=== PATIENT | male | born 1965 | race Caucasian/White ===

== ENCOUNTER → 2021-09-28 09:08 | Outpatient (CLI) | payer OTHER, SELFPAY ==
--- NOTE | ~2021-09-28 | XR_ITS ---
EXAMINATION: XR ankle LT min 3V EXAM DATE: 09/28/2021 09:33 INDICATION: Chronic pain of left ankle TECHNIQUE: Left ankle frontal, lateral and oblique projections obtained and reviewed. There is no pr ior study for comparison. FINDINGS: The left ankle mortise appears intact. There is mild to moderate left ankle osteoarthrit is. There is probable ankle joint effusion and some generalized fat stranding surrounding the ankle j oint which is nonspecific. Fat stranding surrounding the ankle within the subcutaneous tissues as wel l. There are no acute fractures identified. No radiopaque foreign bodies identified. IMPRESSION: 1. Probable left ankle joint effusion, nonspecific deep and superficial fat stranding probably infla mmation. 2. Mild to moderate osteoarthritis. Reviewed, dictated and finalized at location B. 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 Probable left ankle joint effusion, nonspecific deep and superficial fat st randing probably inflammation. 2. Mild to moderate osteoarthritis.
--- NOTE | ~2021-09-28 | XR_ITS ---
EXAMINATION: XR lumbar spine 2-3V EXAM DATE: 09/28/2021 09:33 INDICATION: Chronic bilateral low back pain with bilateral sciatica. Bilat posterior pelvis and lat > hip pain, bilat leg numbness. TECHNIQUE: Lumber spine frontal, lateral, lateral L5-S1 projections for interpretation. There is no prior study for comparison. FINDINGS: There are no acute fractures identified. Moderate lower lumbar facet arthropathy. Mild dif fuse lumbar disc disease. Mild abdominal aortic arteriosclerosis.. The vertebral bodies are aligned i n the AP dimension. Sacrum, sacroiliac joints, sacral arcuate lines are intact. Paraspinal soft tiss ue is unremarkable. IMPRESSION: Mild lumbar disc disease, moderate lower lumbar arthropathy. Reviewed, dictated and finalized at location B. NCIAL AUDITOR
== END ==
PROVIDERS: PCP Physician Assistant; Visit Provider Physician Assistant
DX: M25.572 Pain in left ankle and joints of left foot (principal); G89.29 Other chronic pain; M54.42 Lumbago with sciatica, left side; M54.41 Lumbago with sciatica, right side; M79.89 Other specified soft tissue disorders; M19.072 Primary osteoarthritis, left ankle and foot; M25.472 Effusion, left ankle; M51.9 Unspecified thoracic, thoracolumbar and lumbosacral intervertebral disc disorder; M12.88 Other specific arthropathies, not elsewhere classified, other specified site
CPT/HCPCS: 72100; 73610

== ENCOUNTER → 2022-01-05 16:13 | Outpatient (CLI) | payer OTHER, SELFPAY ==
--- NOTE | ~2022-01-05 | XR_ITS ---
XR shoulder LT min 2V DATE: 01/05/2022 17:15 INDICATION: Left shoulder pain TECHNIQUE: 4 views COMPARISON: None FINDINGS: No fracture or dislocation, periosteal reaction or bone destruction or abnormal soft tissue calcification. There is mild upper thoracic levoscoliosis. IMPRESSION: Negative left shoulder Reviewed, dictated and finalized at location A. IMPRESSION: Negative left shoulder
--- NOTE | ~2022-01-05 | XR_ITS ---
EXAM: XR_CERV2-3V_CR DATE: 01/05/2022 17:15 HISTORY: Chronic bilateral low back pain with bilateral sciatica . COMPARISON: None available. FINDINGS: Craniocervical association and atlantoaxial joint are normal. No prevertebral soft tissue swelling. Vertebral bodies are aligned. Vertebral body heights and disc spaces are maintained. Multil evel facet sclerosis and narrowing. IMPRESSION: Multilevel cervical facet arthropathy. Reviewed, dictated and finalized at location K.
--- NOTE | ~2022-01-05 | MR_ITS ---
EXAMINATION: MR lumbar spine wo con DATE: 01/05/2022 16:57 INDICATION: Lower extremity numbness . TECHNIQUE: Magnetic resonance imaging (MRI) of the lumbar spine was performed without intravenous con trast. Sequences included sagittal T2-weighted FSE, sagittal T2-weighted FS FSE, sagittal T1-weighted FSE, and axial T2-weighted FSE. COMPARISON: X-ray lumbar spine 09/20/2021. FINDINGS: The last fully formed and hydrated disc is designated L5-S1. The marrow signal is benign an d homogenous. Conus terminates at L1-2. Multilevel disc dehydration. The following disc levels are sp ecifically discussed: T11-T12: The disc does not extend beyond the endplate margin. There is no facet joint osteoarthritis. There is no neural foraminal stenosis. There is no central canal stenosis. T12-L1: Mild diffuse bulge. There is mild facet joint osteoarthritis. There is no neural foraminal st enosis. There is no central canal stenosis. L1-L2: Mild diffuse bulge. There is mild facet joint osteoarthritis. There is no neural foraminal yaakov nosis. There is no central canal stenosis. L2-L3: Moderate diffuse bulge. There is moderate facet joint osteoarthritis. There is no neural sarah inal stenosis. There is no central canal stenosis. L3-L4: Moderate diffuse bulge. There is moderate facet joint osteoarthritis. There is mild bilateral neural foraminal stenosis. There is mild central canal stenosis. L4-L5: Moderate diffuse bulge with a right lateral component. There is moderate facet joint osteoarth ritis. A synovial cyst projects off the left facet, directed anteriorly, with surrounding granulation tissue that indents and displaces the adjacent thecal sac and traversing left-sided nerve roots. The re is mild right neural foraminal stenosis. There is mild central canal stenosis. L5-S1: Mild diffuse bulge with superimposed 3 mm central protrusion and a small focal rent in the pos terior disc. There is moderate facet joint osteoarthritis. There is no neural foraminal stenosis. The re is no central canal stenosis. IMPRESSION: 1. Anteriorly directed left L4-5 facet synovial cyst with surrounding granulation tissue that indents and displaces the adjacent thecal sac and nerve roots. 2. 3 mm central L5-S1 disc protrusion with a focal posterior disc rent. 3. Multilevel moderate degenerative disc disease. 4. Multilevel moderate facet arthropathy. 5. Multilevel mild central canal stenosis. Reviewed, dictated and finalized at location K. IMPRESSION: 1. Anteriorly directed left L4-5 facet synovial cyst with surrounding granulati on tissue that indents and displaces the adjacent thecal sac and nerve roots. 2. 3 mm central L5-S1 disc protrusion with a focal posterior disc rent. 3. Multilevel moderate degenerative disc disease. 4. Multilevel moderate facet arthropathy. 5. Multilevel mild central canal stenosis.
== END ==
PROVIDERS: PCP Physician Assistant; Visit Provider Physician Assistant
DX: M54.42 Lumbago with sciatica, left side (principal); M54.41 Lumbago with sciatica, right side; G89.29 Other chronic pain; M54.2 Cervicalgia; M65.88 Other synovitis and tenosynovitis, other site; M51.27 Other intervertebral disc displacement, lumbosacral region; M51.36 Other intervertebral disc degeneration, lumbar region; M48.061 Spinal stenosis, lumbar region without neurogenic claudication; M12.88 Other specific arthropathies, not elsewhere classified, other specified site
CPT/HCPCS: 72040; 72148; 73030

== ENCOUNTER → 2022-01-08 10:33 | Outpatient (CLI) | payer OTHER, SELFPAY ==
--- NOTE | ~2022-01-08 | XR_ITS ---
XR hip BI 2V w AP pelvis DATE: 01/08/2022 11:14 INDICATION: Bilateral hip pain TECHNIQUE: AP pelvis. AP and lateral views of each hip. COMPARISON: None FINDINGS: Minimal bilateral degenerative spurring at the hip joints consistent with mild bilateral hi p osteoarthritis. No fracture or dislocation, avascular necrosis or bone destruction of either hip. The pubic symphysis and sacral iliac joints appear intact. No pelvic fracture or bone destruction. IMPRESSION: Mild bilateral hip osteoarthritis Reviewed, dictated and finalized at location A.
== END ==
PROVIDERS: PCP Physician Assistant
DX: M25.551 Pain in right hip (principal); M25.552 Pain in left hip; M16.0 Bilateral primary osteoarthritis of hip
CPT/HCPCS: 73521

== ENCOUNTER → 2022-08-20 16:21 | Outpatient (CLI) | payer OTHER, SELFPAY ==
--- NOTE | ~2022-08-20 | XR_ITS ---
EXAMINATION: XR ankle LT min 3V DATE: 08/20/2022 16:38 INDICATION: Chronic left ankle pain. TECHNIQUE: 4 views of left ankle were obtained. COMPARISON: Left ankle radiographs 09/28/2021 FINDINGS: Bone alignment is normal. No fracture. There is mild midfoot osteoarthritis. There is sever e ankle joint osteoarthritis. There is ankle soft tissue swelling. IMPRESSION: 1. Polyarticular osteoarthritis, severe at the ankle joint. Reviewed, dictated and finalized at location A. ENT PORTAL CONCIERGE
== END ==
PROVIDERS: PCP Physician Assistant; Visit Provider Orthopaedic Surgery
DX: M25.572 Pain in left ankle and joints of left foot (principal); G89.29 Other chronic pain; M19.072 Primary osteoarthritis, left ankle and foot
CPT/HCPCS: 73610

== ENCOUNTER → 2022-08-26 09:18 | Outpatient (CLI) | payer OTHER, SELFPAY ==
--- NOTE | ~2022-08-26 | XR_ITS ---
Right Knee Technique: AP, lateral, notch, and sunrise views were obtained. Clinical History: Pain Findings: No fracture or dislocation is seen. Osseous alignment is anatomic. There is minimal spurrin g at the intercondylar notch and patella. Soft tissues are unremarkable. No joint effusion is seen. Impression: Minimal degenerative spurring, as above. Reviewed, dictated and finalized at location . E FINISHER Impression: Minimal degenerative spurring, as above.
--- NOTE | ~2022-08-26 | XR_ITS ---
Left Knee Technique: AP, lateral, notch, and sunrise views were obtained. Clinical History: Pain Findings: No fracture or dislocation is seen. Osseous alignment is anatomic. Joint spaces are preserv ed without degenerative or erosive change. Soft tissues are unremarkable. No joint effusion is seen. Impression: Unremarkable left knee radiographs. Reviewed, dictated and finalized at location . ION SUPERVISOR Impression: Unremarkable left knee radiographs.
== END ==
PROVIDERS: PCP Physician Assistant; Visit Provider Orthopaedic Surgery
DX: M25.561 Pain in right knee (principal); M25.562 Pain in left knee; G89.29 Other chronic pain
CPT/HCPCS: 73564

== ENCOUNTER → 2022-11-01 08:32 | Outpatient (CLI) | payer OTHER, SELFPAY ==
--- NOTE | ~2022-11-01 | MR_ITS ---
EXAMINATION: MR brain/brain stem wo/w con DATE: 11/01/2022 09:15 INDICATION: Primary Parkinson's disease. Forgetfulness. TECHNIQUE: Magnetic resonance imaging (MRI) of the brain and brainstem was performed without and with 20 mL MultiHance intravenous contrast. COMPARISON: None. FINDINGS: There are 2 foci of increased T2 weighted signal intensity in the cerebral white matter, wh ich is normal for the patient's age. There is no intracranial hemorrhage, acute infarction, or abnorm al intracranial mass lesion. The ventricles are normal in size. There is mild mucosal thickening in t he paranasal sinuses. The orbits are normal. The mastoid air cells are normal. IMPRESSION: 1. Normal brain. Reviewed, dictated and finalized at location D. IMPRESSION: 1. Normal brain.
== END ==
PROVIDERS: PCP Physician Assistant; Visit Provider Psychiatry & Neurology Neurology
DX: M54.12 Radiculopathy, cervical region (principal); G20 Parkinson's disease
CPT/HCPCS: 70553; A9577

== ENCOUNTER → 2022-11-15 10:43 | Outpatient (CLI) | payer OTHER, SELFPAY ==
--- NOTE | ~2022-11-15 | MR_ITS ---
MRI of the cervical spine Clinical History: Radiculopathy Technique: Axial T2-weighted and gradient images, and sagittal T1-weighted, T2-weighted, and STIR jameson ges were acquired. Following intravenous administration of 15 cc MultiHance gadolinium, T1-weighted f at-sat imaging was performed in the axial and sagittal planes. Findings: There is no fracture or cervical spine. Minimal grade 1 anterolisthesis of C4 over C5 prese nt. No suspicious bone marrow signal abnormality seen. At C2-C3, there is no disc bulge or herniation. There is mild facet arthropathy, right worse than lef t. No spinal canal stenosis, cord compression, or neural foraminal narrowing. At C3-C4, there is minimal disc bulge. No spinal canal stenosis, cord compression, or neural foramina l narrowing. At C4-C5, there is minimal disc bulge. There is left-sided facet arthropathy and left-sided neural fo raminal narrowing. Right neural foramen preserved. No canal stenosis or cord compression. At C5-C6, there is no disc bulge or herniation. No spinal canal stenosis, cord compression, or neural foraminal narrowing. At C6-C7, there is no disc bulge or herniation. No spinal canal stenosis, cord compression, or neural foraminal narrowing. No abnormal signal seen in the spinal cord. No epidural mass or collection seen. Paravertebral soft t issues are unremarkable. No abnormal postcontrast enhancement identified. Impression: Mild degenerative change at C4-C5 with associated left-sided neural foraminal narrowing at this level . Minimal grade 1 anterolisthesis of C4 over C5. Reviewed, dictated and finalized at [facility]. Impression: Mild degenerative change at C4-C5 with associated left-sided neural foraminal n arrowing at this level. Minimal grade 1 anterolisthesis of C4 over C5.
== END ==
PROVIDERS: PCP Psychiatry & Neurology Neurology; Visit Provider Psychiatry & Neurology Neurology
DX: M54.12 Radiculopathy, cervical region (principal); M48.02 Spinal stenosis, cervical region; M43.12 Spondylolisthesis, cervical region
CPT/HCPCS: 72156; A9577

== ENCOUNTER → 2023-03-18 07:56 | Outpatient (CLI) | payer OTHER, SELFPAY ==
--- NOTE | ~2023-03-18 | MR_ITS ---
EXAMINATION: MR knee RT wo con DATE: 03/18/2023 08:26 INDICATION: Primary osteoarthritis of the right knee TECHNIQUE: Magnetic resonance imaging (MRI) of the right knee was performed without intravenous contr ast. Sequences included coronal PD-weighted FSE, coronal PD-weighted FS FSE, sagittal T2-weighted FS E, sagittal PD-weighted FS FSE and axial PD weighted fat saturated FSE. COMPARISON: Right knee radiographs dated 08/26/2022 FINDINGS: Medial compartment: Complex tear of the medial meniscus with longitudinal horizontal tears into the intra-articular surfa ce in the posterior horn and superior articular surface at the anterior body. There is minimal residu al meniscal tissue in the region of the posterior body consistent with secondary degeneration involvi ng displacement of the meniscal tissue. Extensive full/near full-thickness chondral ulceration with s light endometrial along the medial half of the medial tibial plateau and along the anterior to centra l weightbearing medial femoral condyle with underlying subcortical low signal intensity urination and increased T2 edema-like marrow signal change. Lateral compartment: Linear increased signal extending to the superior articular surface of the anterior horn of the later al meniscus suspicious for longitudinal tear although this is a site of decreased specificity for MRI interpretation of meniscal tear. Chondral ulceration and deep chondral fissuring with underlying cor tical irregularity at the posterior weightbearing lateral femoral condyle and deep chondral fissuring without degenerative subchondral changes at the central weightbearing lateral femoral condyle. Less severe partial thickness chondral fissure at the posterior medial aspect of the lateral tibial platea u. Patellofemoral compartment: Deep chondral ulceration with underlying cortical irregularity and underlying cystlike and edema-like signal change at the inferior half of the apical ridge and inferomedial aspect of the lateral trochl ea. Shallow chondral fissuring at the patellar apical ridge and deeper fissuring involving greater th an 50% of the cartilage thickness along the medial side of the medial patellar facet. Ligaments and tendons: Anterior and posterior cruciate ligaments are normal. The medial collateral ligament and fibular hiral ateral ligament complex are normal. Mild distal quadriceps tendinopathy. Patellar tendon is normal. T he visualized medial and lateral hamstring tendons as well as the iliotibial band are normal. Fluid: Small right knee joint effusion. No loose osteochondral bodies identified. Moderate size Phillips's cyst . Osseous/other: Bone alignment is normal. No fracture or pathologic marrow replacing process. IMPRESSION: 1. Complex medial meniscal tear and severe osteoarthritis of extensive high-grade chondromalacia in t he medial compartment. 2. Apparent small longitudinal horizontal tear at the anterior horn of the lateral meniscus although this is a site more susceptible to false positives and interpretation meniscal tear. 3. Mild osteoarthritis with regions of moderate and high-grade chondromalacia in the lateral and cruz llofemoral compartments. 4. Small right knee joint effusion and moderate-sized Phillips's cyst. Reviewed, dictated and finalized at location A. IMPRESSION: 1. Complex medial meniscal tear and severe osteoarthritis of extensive high-gra de chondromalacia in the medial compartment. 2. Apparent small longitudinal horizontal tear at the anterior horn of the late ral meniscus although this is a site more susceptible to false positives and in terpretation meniscal tear. 3. Mild osteoarthritis with regions of moderate and high-grade chondromalacia i n the lateral and patellofemoral compartments. 4. Small right knee joint ef
== END ==
PROVIDERS: PCP Physician Assistant
DX: M17.11 Unilateral primary osteoarthritis, right knee (principal); S83.231A Complex tear of medial meniscus, current injury, right knee, initial encounter; X58.XXXA Exposure to other specified factors, initial encounter; M25.461 Effusion, right knee
CPT/HCPCS: 73721

== ENCOUNTER → 2023-04-25 09:02 | Outpatient (CLI) | payer OTHER, SELFPAY ==
--- NOTE | ~2023-04-25 | XR_ITS ---
EXAMINATION: XR foot LT min 3V, XR foot RT min 3V DATE: 04/25/2023 09:55 INDICATION: Bilateral foot pain TECHNIQUE: 1. Weight bearing dorsoplantar, two oblique and lateral views of the left foot were obtained. 2. Weight bearing dorsoplantar, two oblique and lateral views of the right foot were obtained. COMPARISON: None. FINDINGS: Bilateral pes planus and mild hindfoot valgus. No fractures. Polyarticular osteoarthritis, severe at the right ankle joint and mild on the left as well as mild at many of the remaining joints throughout the bilateral feet. Moderate sized right-sided plantar calcaneal spur and small left-sided Achilles and plantar calcaneal spurs. Additional linear heterotopic ossification overlying the posterolateral metaphysis of the distal right tibia. IMPRESSION: 1. Bilateral pes planus with mild hindfoot valgus. 2. Polyarticular osteoarthritis, severe at the left ankle joint and mild at the right ankle and many of the joints in the bilateral feet. Reviewed, dictated and finalized at location A. IMPRESSION: 1. Bilateral pes planus with mild hindfoot valgus. 2. Polyarticular osteoarthritis, severe at the left ankle joint and mild at the right ankle and many of the joints in the bilateral feet.
== END ==
DX: M21.42 Flat foot [pes planus] (acquired), left foot (principal); M21.41 Flat foot [pes planus] (acquired), right foot; M15.9 Polyosteoarthritis, unspecified; M79.671 Pain in right foot; M79.672 Pain in left foot
CPT/HCPCS: 73630